=== PATIENT | female | born 1985 | race Caucasian/White ===

== ENCOUNTER 2017-09-17 17:19 | Day surgery (SDC) | payer OTHER ==
[2017-09-17 18:13] VITALS: BP 119/66; TEMP 98.8
[2017-09-17 19:09] LABS: Amnisure Test No Membranes Rupture (No Rupture)
--- NOTE | 2017-09-17 19:13 | PDOC.LDHP ---
Labor and Delivery H&P Chief complaint: contractions, loss of fluid HPI: 32 yo @ 39.6 presents today for loss of fluid @ approx 1030 this am. She was seen this morning @ [facility] where she had membranes stripped. She later noticed small gush of fluid @ around 1030 and another small gush of fluid @ approx 330 this afternoon. She reports contractions every 6- 10 minutes. She has a h/o headaches and abdomiinal pain throughout this , but currentyl denies any other symptoms aside from loss of fluid and painful contractions. VS have been wnl throughout . H/o GDM and macrosomic in prior pregnancies, but no complications with this to date. She failed her 1 hr GTT and passed 3 hr gtt making her glucose intolerant. Denies CP, SOB, changes in vision and headache. Current gestational age (weeks): 39 Due date: 09/18/17 Dating criteria: last menstrual period, first trimester ultrasound Grav: 4 Para: 2 OB History Details: glucose intolerant, h/o gdm and macrosomic infant in prior pregnancies Current complications: none Abnormal US findings: No Current medications: pre-nolberto vitamins Previous surgical history: none Social history: none - Physical Exam Vital signs reviewed and normal: yes General: NAD, breathing through contractions Heart: RRR Lungs: nonlabored breathing Abdomen: NTTP FHT: category 1, variability present [place] contractions every: 8 min - Vaginal Exam cm dilated: 4 Effacement: 75% Station: -2 - OB Labs Blood type: O RH: positive Antibody Screen: negative HIV: negative RPR: negative HEPSAg: negative 1 hour GCT: positive 3 hour GTT: negative GBS: negative Rubella: immune - Assessment L&D Assessment: term rupture in membranes r/o active labor and SROM amnisure pending cervical checks q 2h cat 1 strip 140s bl, + accels, - decels contractions q8 min will continue to monitor - Plan Plan: observation in L&D -: r/o active labor and SROM amnisure pending cervical checks q 2h cat 1 strip 140s bl, + accels, - decels contractions q8 min will continue to monitor <Jeb Michel - Last Filed: 09/17/17 19:09> <Shayla Camilo - Last Filed: 09/17/17 23:16> Allergies/Adverse Reactions: Allergies Allergy/AdvReac Type Severity Reaction Status Date / Time No Known Allergies Allergy Unverified 02/28/15 11:38 Attending Addendum - Attending Addendum I personally evaluated the patient and discussed the management with Dr. Michel on 09/17/17. I agree with the History, Examination, Assessment and Plan documented above with any addition or exceptions noted below. No cervical change. Discharge home. Labor precautions reviewed. <Shayla Camilo - Last Filed: 09/17/17 23:16>
== END 2017-09-17 22:30 | disposition home or self-care (01) ==
LOC: L&D/OP 17:19
PROVIDERS: ATTEND Student in an Organized Health Care Education/Training Program
DX: O47.1 False labor at or after 37 completed weeks of gestation (principal); O99.89 Other specified diseases and conditions complicating pregnancy, childbirth and the puerperium; O42.92 Full-term premature rupture of membranes, unspecified as to length of time between rupture and onset of labor; E74.39 Other disorders of intestinal carbohydrate absorption; Z3A.39 39 weeks gestation of pregnancy; Z79.899 Other long term (current) drug therapy; Z86.32 Personal history of gestational diabetes
CPT/HCPCS: 84112

== ENCOUNTER 2017-09-18 10:28 | Inpatient (IN) | payer MEDICAID, OTHER, SELFPAY ==
[2017-09-19] MEDS ORDERED: Ibuprofen 800 MG TAB PO PRN (05:17)
[2017-09-19] MEDS ORDERED: Acetaminophen 500 MG TAB PO PRN (05:17)
[2017-09-19] MEDS ORDERED: LR / Pitocin 40 units/1000 ml 1,000 ML IV PRN (05:17)
[2017-09-19] MEDS ORDERED: Promethazine HCl 25 MG/ML VIAL IM PRN ×2 (05:17→09:37)
[2017-09-19] MEDS ORDERED: Ondansetron HCl/PF 4 MG/2 ML Vial IVP PRN ×2 (05:17→09:37)
[2017-09-19] MEDS ORDERED: Lidocaine 1% (PF) 30 ML VIAL SC PRN (05:17)
[2017-09-19] MEDS ORDERED: LR 500 ML/Oxytocin 10 units 500 ML IV SCH (05:30)
[2017-09-19] MEDS: Lactated Ringer's 1,000 ML IV SCH ×2 (08:40→09:57)
[2017-09-19 09:09] LABS: Hematocrit 37.6 % (36.0-47.0); Mean Platelet Volume 8.3 fL (7.4-10.4); Red Blood Cell (RBC) Count 4.08 mill/uL (4.20-5.40); White Blood Cell (WBC) Count 9.7 thou/uL (4.8-10.8)
[2017-09-19] MEDS ORDERED: Fentanyl 4 mcg/Marc 0.1% Cadd 100 ML ONE (09:16)
[2017-09-19] MEDS ORDERED: Acetaminophen 325 MG TAB PO PRN (09:37)
[2017-09-19] MEDS ORDERED: diphenhydrAMINE 50 MG/ML VIAL IVP PRN (09:37)
[2017-09-19] MEDS ORDERED: Eucerin (Mineral Oil/Petrolatum,White) 30 gm Jar TOP PRN (09:37)
[2017-09-19] MEDS ORDERED: Naloxone HCl 0.4 mg/ml Vial IVP PRN ×2 (09:37)
[2017-09-19] MEDS ORDERED: ePHEDrine/0.9% NaCl/PF SYRINGE 50 mg/10 ml SLOW IVP PRN (09:37)
[2017-09-19] MEDS ORDERED: Lactated Ringer's 500 ML IV PRN (09:37)
[2017-09-19] MEDS ORDERED: Fentanyl 4mcg/Marcaine 0.1% Cassette 100 ML EPIDURAL SCH (09:45)
[2017-09-19] MEDS ORDERED: Communication Order-Pharmacy FS SCH (09:45)
--- NOTE | 2017-09-19 09:58 | PDOC.LDHP ---
Labor and Delivery H&P Chief complaint: scheduled induction HPI: 32 yo at 40.1wks by LMP c/w 11.4wk US presents for induction of labor, elective 2/2 post dates. Pt was here two nights ago and was dilated to 4cm. Pt presents today without complaints of contractions, bleeding, or fluid loss; she endorses some discharge. Pt has had UTI's treated in . 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 02/2017 ob hx: 1st : spontaneous s/p d&c 2nd : gestational diabetes, induced, 3rd : macrosomia; not diagnosed with gestation diabetes, induced Dating criteria: first trimester ultrasound (11.4) Grav: 4 Para: 2 OB History Details: Current complications: other (glucose intolerance) Abnormal US findings: No Current medications: pre-nolberto vitamins Previous surgical history: dilation and curettage (spontaneous with first ) Social history: none - Physical Exam General: NAD, resting, breathing through contractions Heart: RRR Lungs: nonlabored breathing Abdomen: NTTP Extremeties: no edema FHT: category 1 [place] contractions every: 2-3 minutes - Vaginal Exam cm dilated: 6 Effacement: 75% Station: -1 - OB Labs Blood type: O RH: positive Antibody Screen: negative HIV: negative RPR: negative HEPSAg: negative 1 hour GCT: positive 3 hour GTT: negative GBS: negative Urine drug screen: not done (Induction of labor with pitocin (pt is multip); labor checks q2h) Rubella: immune Additional Labs: Gonorrhea: negative Chlamydia: negative UTI, gram negative bacilli: 07/01/2017 - Assessment L&D Assessment: elective induction at term - Plan Plan: admit to L&D, labor augmentation if indicated, informed consent obtained <Cece Joaquin - Last Filed: 09/19/17 10:03> <Shweta Giron - Last Filed: 09/19/17 10:45> Allergies/Adverse Reactions: Allergies Allergy/AdvReac Type Severity Reaction Status Date / Time No Known Allergies Allergy Unverified 02/28/15 11:38 Attending Addendum - Attending Addendum I personally evaluated the patient and discussed the management with Dr. Joaquin I agree with the History, Examination, Assessment and Plan documented above with any addition or exceptions noted below. 32 yo female at 40.1 wks by LMP/11.4 wk sono presents in latent labor. Patient found to be at 5 cm with regular contractions every 10 minutes. Membranes intact. Discussed R/B/A with patient. Patient elected to proceed with AROM. Will admit to L&D for labor augmentation. Labs to be collected. IV to be started. Will AROM once IV in place. 1. sIUP: IOB labs reviewed. NILM 02/2017. Anatomy reviewed. 1 hour gtt positive x2. 3 hour gtt negative x2. 3T labs negative. GBS negative. Vertex. Anterior fundal placenta. Membranes currently intact. EFW = 8 to 8.5 lbs. Tdap/Flu given antenatally. 2. Late transfer of care 3. E. coli UTI x1: Treated. AMBER negative. 4. Recurrent Candidia and BV this 5. hx of A1 GDM and macrosomia with last : Glucose on admission pending. 6. hx of D&C 2006: Anterior fundal placenta. No pathology on sono. 7. Fam hx of DM, CAD, seizure d/o AROM on next exam. FHT cat 1. Would like epidural for pain control. Jean-Claude <Shweta Giron - Last Filed: 09/19/17 10:45>
--- NOTE | 2017-09-19 10:16 | PDOC.LDPN ---
Addendum entered and electronically signed by Cece Joaquin MD 09/19/17 10:16: Epidural placed at 0900. Original Note: Labor & Delivery Progress Note - Subjective Subjective: comfortable, vaginal pressure, loss of fluid (AROM, clear with IUPC placement) - Objective Vital signs reviewed and normal: yes General: NAD, resting, breathing through contractions Uterine fundus: non tender Dilation: 9 Effacement: 100% Station: 0 FHT: category 1 [place] contractions every: 2-3 minutes AROM: clear fluid IUPC placed: yes Resuscitative measures: maternal IV fluids, maternal position change Plan: continue plan of care, pitocin for augmentation (continue pitocin) <Cece Joaquin - Last Filed: 09/19/17 10:13> Attending Addendum - Attending Addendum I personally evaluated the patient and discussed the management with Dr. Joaquin I agree with the History, Examination, Assessment and Plan documented above with any addition or exceptions noted below. 32 yo female at 40.1 wks by LMP/11.4 wk sono presents in latent labor, admitted for augmentation. 1. sIUP: IOB labs reviewed. NILM 02/2017. Anatomy reviewed. 1 hour gtt positive x2. 3 hour gtt negative x2. 3T labs negative. GBS negative. Vertex. Anterior fundal placenta. EFW = 8 to 8.5 lbs. Tdap/Flu given antenatally. AROM with clear fluid. Repeat exam in 1 to 2 hours. 2. Late transfer of care 3. E. coli UTI x1: Treated. AMBER negative. 4. Recurrent Candidia and BV this 5. hx of A1 GDM and macrosomia with last : Glucose on admission = 120 but this was associated with juice. Will monitor infant. 6. hx of D&C 2006: Anterior fundal placenta. No pathology on sono. 7. Fam hx of DM, CAD, seizure d/o FHT cat 1. Epidural in place. Pain controlled. ABrayMD <Shweta Giron - Last Filed: 09/19/17 10:51>
--- NOTE | 2017-09-19 11:31 | PDOC.OPDEL ---
Addendum entered and electronically signed by Bee Mcallister DO 09/19/17 14:59: Aside from edit delivery time to be 11:07am on 09/19/17. Addendum entered and electronically signed by Bee Mcallister DO 09/19/17 14:16: Agree with document per Dr. Jemal Mendez Original Note: OB Operative/Delivery Note Delivery Dr/Surgeon: Dr. Esvin Babb Assist: Attending: Dr. Giron, Assist: Dr. Watkins Pre-Delivery Diagnosis: active labor, elective induction Procedure/Post Delivery Dx: spontaneous vaginal delivery Weeks gestation: 40 (40.1 by 11.4 US) Anesthesia: epidural - Findings A Sex: female - 1 min: 9 - 5 min: 9 - Additional Findings/Plan Placenta delivered: spontaneous Repaired Obstetrical Laceration: none Estimated blood loss: 250 Compilations/Other Findings: none Post delivery plan: routine recovery <Cece Joaquin - Last Filed: 09/19/17 11:29> Operative Note - Operative Note Operative Note: Delivering Physician: Dr. Jemal Mendez, Dr. Mcallister; Assist: Dr. Watkins Attending:Dr. Giron Procedure: Spontaneous Vaginal Delivery Anesthesia: epidural EBL: 250 ml Pre-op Diagnosis: 1. Term intrauterine in labor 2. Hx of macrosomia, Hx GDM, diet controlled Post-op Diagnosis: 1. Term intrauterine , delivered 2. same as above Indications: A 32 y/o female -->3 presents to L&D for latent labor for AROM and pitocin augmentation. Delivery Note: This is 32 yo F -->3 @ 40.1 wks who delivered a viable F at 1115 on 09/19. Following an uneventful antepartum course, a vigorous male was delivered over an intact perineum in the OA position. Anterior Shoulder and then remainder of the body delivered. No nuchal cord. The head was held down and mouth and nares were bulb suctioned. Cord clamped and cut and cord blood collected. Placenta delivered intact with a 3 vessel cord noted. Fundal massage was performed and the fundus was firm. The cervix and vagina were inspected and found to be free of lacerations. Infant went to nursery in good condition for routine care. Apgars were 9/9 at 1 & 5 minutes, respectively. Patient tolerated delivery well and went to after routine recovery/care. <Cece Joaquin - Last Filed: 09/19/17 11:29> Attending Addendum - Attending Addendum I was present and partiscipated in the procedure with Dr. Joaquin and Dr. Mcallister 32 yo now female s/p at 40.1 wks at 1107 on 09/19/17. Uncomplicated delivery. EBL = 250 mL. Vaginal edema noted after delivery. Continuous ice packs. Monitor for hematoma formation. ABrayMD <Shweta Giron - Last Filed: 09/19/17 16:34>
[2017-09-19 11:56] VITALS: BMI 29.7
[2017-09-19] MEDS ORDERED: diphenhydrAMINE 25 MG CAP PO PRN (12:08)
[2017-09-19] MEDS ORDERED: LR / Pitocin 40 units/1000 ml 1,000 ML IV SCH (12:08)
[2017-09-19] MEDS ORDERED: Lanolin Ointment 7 GM TUBE TOP PRN (12:08)
[2017-09-19] MEDS ORDERED: Bisacodyl 10 MG SUPP PR PRN (12:08)
[2017-09-19] MEDS ORDERED: Milk Of Magnesia 30 ML UDCUP PO PRN (12:08)
[2017-09-19] MEDS ORDERED: Benzocaine/Menthol 20-0.5% 60 ML CAN TOP PRN (12:08)
[2017-09-19] MEDS ORDERED: Preparation H Ointment 28 GM TUBE PR PRN (12:08)
[2017-09-19] MEDS: Ibuprofen 800 MG TAB PO SCH ×2 (19:42→19:47)
[2017-09-20] MEDS: Ibuprofen 800 MG TAB PO SCH ×3 (05:21→21:34)
[2017-09-20] MEDS: Prenatal Vitamin 1 TAB PO SCH (07:45)
--- NOTE | 2017-09-20 08:14 | PDOC.PP ---
Post Progress Note Post Day #: 1 Subjective: pt feeling well aside from vaginal swelling and pain. uterine cramping with . desires to stay 1 more day to control pain. PO intake tolerated: yes Flatus: yes Ambulation: yes Vital Signs (12 hours) Temp Pulse Resp BP 09/20/17 04:00 98.9 F 79 16 09/19/17 23:40 98.9 F 79 16 107/59 L Weight Weight 68.946 kg - Physical Examination General: NAD Cardiovascular: no m/r/g, RRR Respiratory: clear to auscultation bilaterally, non-labored breathing Abdominal: + bowel sounds, lochia (minimal lochia rubra), no distention, appropriately TTP Fundus firm & at: below umbilicus Extremities: negative homans (B) Skin: no rash Perineum: diffuse perineal edema, no hematoma Neurological: no gross focal deficits Psychiatric: A&Ox3, normal affect Result Diagrams: 09/19/17 08:40 Additional Labs: Post Labs Hep Bs Antigen Non-Reactive S/CO (NonReactive) 09/19/17 08:40 (1) (spontaneous vaginal delivery) Code(s): O80 - ENCOUNTER FOR FULL-TERM UNCOMPLICATED DELIVERY Status: Acute Comment: 32yo -> PPD#1 s/p -- doing well. ambulating, tolerating po and voiding normally. c/o diffuse perineal pain and swelling, will give pain meds prn and keep overnight for pain control. plan to d/c home tomorrow am. (2) Swelling of perineal tissue Code(s): R22.2 - LOCALIZED SWELLING, MASS AND LUMP, TRUNK Status: Acute Comment: continue ice application and ibuprofen. encourage ambulation. use topical dermoplast & proctofoam. <Bee Mcallister - Last Filed: 09/20/17 08:53> Vital Signs (12 hours) Temp Pulse Resp BP 09/20/17 07:45 98.0 F 76 20 102/57 L 09/20/17 04:00 98.9 F 79 16 09/19/17 23:40 98.9 F 79 16 107/59 L Weight Weight 68.946 kg Result Diagrams: 09/19/17 08:40 Additional Labs: Post Labs Hep Bs Antigen Non-Reactive S/CO (NonReactive) 09/19/17 08:40 <Shweta Giron - Last Filed: 09/20/17 10:30> Attending Addendum - Attending Addendum I personally evaluated the patient and discussed the management with Dr. Mcallister I agree with the History, Examination, Assessment and Plan documented above with any addition or exceptions noted below. 32 yo now female s/p at 40.1 wks on 09/19/17 at 1107 PPD#1 1. s/p : Doing well. Bilateral labial edema stable. No evidence of hematoma. Encouraged ambulation. Pain present but somewhat controlled with PO meds. Will adjust to improve pain control. Breast feeding. Lochia appropriate. Funds firm at umbilicus. Nontender. No dysuria. 2. E. coli UTI x1 antepartum: Treated. AMBER negative. Asymptomatic. 3. Recurrent Candidia and BV this : Currently asymptomatic. 4. Glucose intolerance with BMI of 30: Lifestyle modifications. Would screen yearly for DM. 5. Fam hx of DM, CAD, seizure d/o Continue routine pp care. Improve pain control. Encourage ambulation throughout the day. Likely d/c in AM. ABrayMD <Shweta Giron - Last Filed: 09/20/17 10:30>
[2017-09-20] MEDS: HYDROcodone/Acetaminophen 5/325 mg Tablet PO PRN ×2 (09:38→13:43)
[2017-09-20] MEDS: Hydrocortisone/Pramoxine (Proctofoam HC) 10 GM BOX TOP SCH ×3 (13:42→21:37)
[2017-09-21] MEDS: Ibuprofen 800 MG TAB PO SCH ×2 (06:45→13:21)
[2017-09-21 07:57] VITALS: BP 96/51; TEMP 98.5
[2017-09-21] MEDS: Prenatal Vitamin 1 TAB PO SCH (08:14)
[2017-09-21] MEDS: Hydrocortisone/Pramoxine (Proctofoam HC) 10 GM BOX TOP SCH (08:16)
--- NOTE | 2017-09-21 08:51 | PDOC.PP ---
Post Progress Note Post Day #: 2 Subjective: pt's perineal edema has improved but she feels that it is now more swollen in the mons area. also felt like "her guts were going to fall out" so she is wearing an abdominal binder from home. No other concerns. Minimal bleeding. Ambulating. No fevers/chills. PO intake tolerated: yes Flatus: yes Ambulation: yes Vital Signs (12 hours) Temp Pulse Resp BP Pulse Ox 09/21/17 07:56 98.5 F 65 18 96/51 L 97 Weight Weight 68.946 kg - Physical Examination General: NAD Cardiovascular: no m/r/g, RRR Respiratory: clear to auscultation bilaterally, non-labored breathing Abdominal: + bowel sounds (appropriate), lochia (appropriateq), no distention, appropriately TTP Fundus firm & at: below umbilicus Extremities: negative homans (B) Skin: no rash Perineum: improved labial edema with ice packs, but persistent ttp & edema at mons Neurological: no gross focal deficits Psychiatric: A&Ox3, normal affect Result Diagrams: 09/19/17 08:40 Additional Labs: Post Labs Hep Bs Antigen Non-Reactive S/CO (NonReactive) 09/19/17 08:40 (1) (spontaneous vaginal delivery) Code(s): O80 - ENCOUNTER FOR FULL-TERM UNCOMPLICATED DELIVERY Status: Acute Comment: 32yo -> PPD#2 s/p -- doing well & progressing as anticipated. ambulating, tolerating po and voiding normally. VSS. lochia minimal & appropriate. Undecided regarding contraception. Plans to follow up within 1 week of discharge at [facility]. (2) Swelling of perineal tissue Code(s): R22.2 - LOCALIZED SWELLING, MASS AND LUMP, TRUNK Status: Acute Comment: continue ice application and ibuprofen, topical dermoplast & proctofoam. diffusely edematous with no concern for cellulitis. recommend outpt f/u at [facility] in 3 days. <Bee Mcallister - Last Filed: 09/21/17 13:49> Vital Signs (12 hours) Temp Pulse Resp BP Pulse Ox 09/21/17 07:56 98.5 F 65 18 96/51 L 97 09/21/17 07:40 98.5 F 65 18 Weight Weight 68.946 kg Result Diagrams: 09/19/17 08:40 Additional Labs: Post Labs Hep Bs Antigen Non-Reactive S/CO (NonReactive) 09/19/17 08:40 <Shweta Giron - Last Filed: 09/21/17 16:32> Attending Addendum - Attending Addendum I personally evaluated the patient and discussed the management with Dr. Mcallister I agree with the History, Examination, Assessment and Plan documented above with any addition or exceptions noted below. 32 yo now female s/p at 40.1 wks on 09/19/17 at 1107 PPD#2 1. s/p : Doing well. Bilateral labial edema improved. No evidence of hematoma. Encouraged ambulation. Pain controlled with PO meds. Breast feeding. Lochia appropriate. Funds firm below umbilicus. Nontender. No dysuria. 2. E. coli UTI x1 antepartum: Treated. AMBER negative. Asymptomatic. 3. Recurrent Candidia and BV this : Currently asymptomatic. 4. Glucose intolerance with BMI of 30: Lifestyle modifications. Would screen yearly for DM. 5. Fam hx of DM, CAD, seizure d/o Okay to d/c to home today. Follow up with [facility] in 1 to 2 wks. Will need to discuss contraception type at that follow up. KrunalMD <Shweta Giron - Last Filed: 09/21/17 16:32>
== END 2017-09-21 15:50 | disposition home or self-care (01) | DRG 775 ==
LOC: L&D 09-19 07:16 → 3SW 09-19 13:58
PROVIDERS: ADMIT Family Medicine; ATTEND Student in an Organized Health Care Education/Training Program
PROC: 10E0XZZ Delivery of Products of Conception, External Approach (ICD-10-PCS; principal; 2017-09-19)
PROC: 3E0P3VZ Introduction of Hormone into Female Reproductive, Percutaneous Approach (ICD-10-PCS; 2017-09-19)
PROC: 10907ZC Drainage of Amniotic Fluid, Therapeutic from Products of Conception, Via Natural or Artificial Opening (ICD-10-PCS; 2017-09-19)
PROC: 10H07YZ Insertion of Other Device into Products of Conception, Via Natural or Artificial Opening (ICD-10-PCS; 2017-09-19)
DX: O48.0 Post-term pregnancy (principal); E74.39 Other disorders of intestinal carbohydrate absorption; Z37.0 Single live birth; Z3A.40 40 weeks gestation of pregnancy
CPT/HCPCS: 36416; 76815; 85027; 86780; 87340; 87389; J2001; J7120